=== PATIENT | male | born 1965 | race African-American/Black ===

== ENCOUNTER 2018-04-01 17:23 | Emergency (ER) | payer OTHER ==
[2018-04-01] MEDS: FLUORESCEIN STRIP LEFT EYE (18:11)
[2018-04-01] MEDS: HYDROCODONE/APAP (5/325) TAB PO (18:40)
[2018-04-01] MEDS: IBUPROFEN 600 MG TAB PO (18:40)
[2018-04-01] MEDS: CIPROFLOXACIN 0.3% 2.5 ML OPH LEFT EYE (18:59)
== END 2018-04-01 19:48 | disposition home or self-care (01) ==
LOC: FTE 17:23
DX: H16.002 Unspecified corneal ulcer, left eye (principal)
CPT/HCPCS: 99283; Z7502